=== PATIENT | female | born 1960 | race Two or more races ===

== ENCOUNTER → 2019-07-10 | Day surgery (SDC) | payer SELFPAY ==
[~2019-07-10] MED LIST: FENTANYL CITRATE/PF 100MCG/2 ML INJ ONE; GLYCOPYRROLATE INJ 0.2 MG/ML VIAL ONE; MIDAZOLAM HCL 2 MG/2 ML VIAL ONE; OR PHACO EYE KIT ONE; PREOP PHACO EYE KIT ONE
[2019-07-10 13:10] VITALS: BP 139/79
== END | disposition home or self-care (01) ==
LOC: OR 09:59
PROVIDERS: ATTEND Ophthalmology
DX: H25.042 Posterior subcapsular polar age-related cataract, left eye (principal); H25.12 Age-related nuclear cataract, left eye; H53.10 Unspecified subjective visual disturbances; Z01.812 Encounter for preprocedural laboratory examination; Z11.59 Encounter for screening for other viral diseases; Z87.891 Personal history of nicotine dependence
CPT/HCPCS: 66984; 87635; J2250; J3010

== ENCOUNTER → 2019-07-24 | Day surgery (SDC) | payer SELFPAY ==
[~2019-07-24] MED LIST changes: +ATROPINE SULFATE 1 MG/ML VIAL ONE
[2019-07-24 14:11] VITALS: BP 132/86
== END | disposition home or self-care (01) ==
LOC: OR 10:28
PROVIDERS: ATTEND Ophthalmology
DX: H25.11 Age-related nuclear cataract, right eye (principal); H25.041 Posterior subcapsular polar age-related cataract, right eye; Z01.812 Encounter for preprocedural laboratory examination; Z11.59 Encounter for screening for other viral diseases
CPT/HCPCS: 66984; 87635; J0461; J2250; J3010